=== PATIENT | female | born 1965 | race Two or more races ===

== ENCOUNTER 2017-12-31 19:01 | Emergency (ER) | payer MEDICAID, OTHER ==
[~2017-12-31] VITALS: Ht 157.5 cm; Wt 61.2 kg
[~2017-12-31 19:01] MED LIST: CLAR500T PO; METR500T PO; OMEP20CA74 OR
[2017-12-31 19:20] VITALS: BP 132/89
[2017-12-31] MEDS ORDERED: DEXAMETHASONE SOD PHOS 10MG/1ML VIAL INJ IM ONE (23:30)
[2017-12-31] MEDS ORDERED: cefTRIAXone SOD 1,000 MG VL IM ONE (23:30)
== END 2017-12-31 23:45 | disposition home or self-care (01) ==
LOC: ER 19:01
DX: J40 Bronchitis, not specified as acute or chronic (principal)
CPT/HCPCS: 96372; 99284; J0696; J1100

== ENCOUNTER 2021-02-10 01:59 | Emergency (ER) | payer MEDICAID ==
[~2021-02-10] VITALS: Ht 154.9 cm; Wt 65.8 kg
[~2021-02-10 01:59] MED LIST changes: +CLAR1TAB21 PO; -CLAR500T PO
[2021-02-10] MEDS ORDERED: HYDROcodone-ACET 5/325MG TAB PO ONE (03:00)
[2021-02-10] MEDS ORDERED: ONDANSETRON ODT 4 MG TAB PO ONE (03:00)
[2021-02-10] MEDS ORDERED: HYDROmorphone HCL 2 MG/ML VL IM ONE (04:45)
[2021-02-10 06:45] VITALS: BP 143/92
== END 2021-02-10 04:57 | disposition home or self-care (01) ==
LOC: ER 01:59
DX: M54.16 Radiculopathy, lumbar region (principal); E11.9 Type 2 diabetes mellitus without complications; K21.9 Gastro-esophageal reflux disease without esophagitis
CPT/HCPCS: 72131; 96372; 99284; J1170; Q0162

== ENCOUNTER 2021-02-11 10:47 | Emergency (ER) | payer MEDICAID ==
[~2021-02-11] VITALS: Ht 157.5 cm; Wt 68.0 kg
[2021-02-11] MEDS ORDERED: MORPHINE SULFATE 4 MG/ML SYR/VIAL IV ONE (11:00)
[2021-02-11] MEDS ORDERED: ONDANSETRON HCL 4 MG/2 ML VIAL IV ONE (11:00)
[2021-02-11] MEDS ORDERED: SODIUM CHLORIDE 0.9% 500 ML IVB ONE (11:00)
[2021-02-11 11:42] LABS: Urine Bacteria FEW /hpf (None Seen); Urine Blood Negative /uL (Negative); Urine Hyaline Cast FEW /lpf (0 - 2); Urine Mucus FEW (None Seen); Urine Specific Gravity 1.035 (1.001-1.035); Urine WBC 20 /hpf (0 - 5)
[2021-02-11 11:55] LABS: Basophils # (auto) 0 10 ^3/uL (0-0.2); Basophils % (auto) 0.4 % (0.0-2.0); Eosinophils # (auto) 0 10 ^3/uL (0-0.8); Eosinophils % (auto) 0.3 % (0.0-7.0); Hemoglobin 14.5 g/dL (12.2-16.2); Lymphocytes # (auto) 1.2 10 ^3/uL (0.4-5.4); Lymphocytes % (auto) 12.6 % (10.0-50.0); Mean Corpuscular Hgb Conc. 33.8 g/dL (32.0-36.0); Monocytes # (auto) 0.4 10 ^3/uL (0-1.3); Monocytes % (auto) 4.4 % (0.0-12.0); Neutrophils % (auto) 82.3 % (37.0-80.0); Nucleated Red Blood Cells % 0.1 %; Red Blood Cells 4.83 10^6/uL (4.0-5.20); Red Cell Distribution Width 13.4 % (11.8-14.3); White Blood Cell 9.8 10^3/uL (4.4-10.8)
[2021-02-11 13:15] VITALS: BP 117/64
[2021-02-11 13:31] LABS: Potassium 3.8 mmol/L (3.5-5.1)
[2021-02-11 13:38] LABS: Albumin 3.4 g/dL (3.4-5.0); BUN/Creatinine Ratio 37.7; Bilirubin, Total 0.5 mg/dL (0.2-1.0); Calcium 9.4 mg/dL (8.5-10.1); Total Protein 7.4 g/dL (6.4-8.2)
== END 2021-02-11 14:11 | disposition home or self-care (01) ==
LOC: ER 10:47
DX: N39.0 Urinary tract infection, site not specified (principal); E11.9 Type 2 diabetes mellitus without complications; K21.9 Gastro-esophageal reflux disease without esophagitis; Z79.899 Other long term (current) drug therapy; Z90.49 Acquired absence of other specified parts of digestive tract
CPT/HCPCS: 36415; 74176; 80053; 81001; 83690; 85025; 93005; 96361; 96374; 96375; 99285; J2270; J2405